=== PATIENT | female | born 1975 | race Caucasian/White ===

== ENCOUNTER 2016-05-18 06:39 | Outpatient (CLI) ==
[2013-10-03 22:31] VITALS: BMI 25.1
--- NOTE | 2016-05-23 10:59 | STRESSECHO ---
Date of Test: 05/18/16 Reason for Exam: ABNORMAL EKG Ordering Physician: INEZ TRENTON [facility] Current Medications: ATENOLOL, FIORESNOL, MEDRIN Physical Findings: S1, S2, NO S3 Resting EKG: SINUS RHYTHM/ NO ACUTE CHANGES Target Heart Rate: 153/180 STAGE MPH/GRADE HEART RATE BPM BLOOD PRESSURE/ MMHG RHYTHM S-T SEGMENT +/- UP DOWN SYMPTOMS,COMMENTS At Rest 90 116/70 SR X NONE 1 1.7/10% 130 130/82 SR X NONE 2 2.5/12% 134/82 SR X NONE 3 3.4/14% 4 4.2/16% 5 5.0/18% Immediately after 158 SR X FATIGUE Durations of Exercise: 6:00 Maximum Heart Rate Reached: 158 Reason for Termination: FATIGUE 3 MIN POST EXER HR-105 SINUS RHYTHM, S-T SEGMENT +/-, NO COMMENTS INTERPRETATION: 99% OXYGEN SATURATION WITH EXERCISE ON ROOM AIR METS 7.0 1. TEST NEGATIVE FOR ISCHEMIC ST-T WAVE CHANGES 2. NO CHEST PAIN OR CHEST DISCOMFORT 3. NO ARRHYTHMIAS 4. BLOOD PRESSURE RESPONSE: NORMAL NORMAL LEFT VENTRICULAR CONTRACTILITY--RESTING/POST EXERCISE MTDD
--- NOTE | 2016-05-23 11:01 | ECHOSTRESS ---
Date of Exam: 05/18/16 Ordering Physician: GATO Reason for Echo: ABNORMAL EKG, STRESS TEST--NO ISCHEMIA M-Mode Normal Adult Results LV Dimensions Normal Adult Results AoV Opening excursions >1.6 LVEDD-base- 3.5-5.8 Ao root dimensions 2.0-3.7 LVESD-base- 3.1-4.6 L. Atrium dimensions 1.9-3.8 Post. Wall thickness 0.8-1.1 IV septum (thickness) 0.7-1.2 Post. Wall excursion 0.72-1.3 Septal motion Systolic motion R. Ventricular cavity 1.5-2.0 LVEF 60% Paradoxical septal wall motion 2-D: NORMAL LEFT VENTRICULAR CONTRACTILITY--RESTING AND POST EXERCISE M-MODE: MV: AV: TV: PV: CHAMBER SIZE: WALL MOTION: NORMAL LEFT VENTRICULAR CONTRACTILITY--RESTING AND POST EXERCISE PERICARDIUM: INTERPRETATION: 1. NORMAL LEFT VENTRICULAR CONTRACTILITY--RESTING AND POST EXERCISE MTDD
== END 2016-05-18 06:40 | disposition home or self-care (01) ==
LOC: CAR 06:39
PROVIDERS: ATTEND Nurse Practitioner Family
DX: R94.31 Abnormal electrocardiogram [ECG] [EKG] (principal)

== ENCOUNTER 2016-07-13 11:28 | Outpatient (CLI) ==
[2013-10-03 22:31] VITALS: BMI 25.1
== END 2016-07-13 11:29 | disposition home or self-care (01) ==
LOC: LAB 11:28
PROVIDERS: ATTEND Nurse Practitioner Family
DX: J02.9 Acute pharyngitis, unspecified (principal)
CPT/HCPCS: 87651; 87880

== ENCOUNTER 2016-10-18 02:04 | Emergency (ER) | payer BC, OTHER ==
[2016-10-18] MEDS ORDERED: ZOFRAN 4 MG/2 ML IM STA (02:12)
[2016-10-18] MEDS ORDERED: ROCEPHIN IM STA (02:12)
[2016-10-18] MEDS ORDERED: LIDOCAINE 1 % AMP 5 ML (SUTURES) IM STA (02:12)
[2016-10-18] MEDS ORDERED: MORPHINE 2 MG/ML SYRINGE IM STA (02:12)
--- NOTE | 2016-10-18 02:15 | ED.PDOC ---
General ED Provider: Dr. SHABNAM HERNANDEZ-ER Chief Complaint: Earache Stated Complaint: avel had a cold --my ears are hurting Time Seen by Physician: 02:13 Mode of Arrival: Walk-In Information Source: Patient Exam Limitations: No limitations Primary Care Provider: SHANNON RASHID Nursing and Triage Documentation Reviewed and Agree: Yes EENT Complaint Exam - Ear Complaint/Exam Onset/Duration: today Symptoms Are: Still present Timing: Constant Initial Severity: Mild Current Severity: Moderate Character: Reports: Dull pain, Aching pain, Throbbing pain Aggravating: Reports: None Alleviating: Reports: None Associated Signs and Symptoms: Reports: URI symptoms. Denies: Ear trauma, Ear swelling, Discharge, Fever, Hearing loss, Bleeding, Sore throat, Headache, Foreign body sensation, Rash, Pain to external ear, Pain to external face Related History: Reports: Similar Episode Ear Surgical History: None Vesicles to External Pinna: No Vesicles to Tragus: No TMJ Tenderness: None Mastoid Tenderness: None Tragal Tenderness: None External Canal: Normal Tympanic Membrane: Erythema, Dullness Differential Diagnoses: Otitis Media Review of Systems - Review Of Systems Constitutional: Reports: No symptoms Eyes: Reports: No symptoms Ears, Nose, Mouth, Throat: Reports: Ear pain, Nose discharge Respiratory: Reports: No symptoms Cardiac: Reports: No symptoms GI: Reports: No symptoms : Reports: No symptoms Musculoskeletal: Reports: No symptoms Skin: Reports: No symptoms Neurological: Reports: No symptoms Endocrine: Reports: No symptoms Hematologic/Lymphatic: Reports: No symptoms All Other Systems: Reviewed and Negative Past Medical History - Past Medical History Previously Healthy: Yes Endocrine: Reports: Unknown Cardiovascular: Reports: Unknown Respiratory: Reports: Unknown Hematological: Reports: Unknown Gastrointestinal: Reports: Liver Genitourinary: Reports: Unknown Neuro/Psych: Reports: Unknown Musculoskeletal: Reports: Unknown Cancer: Reports: Unknown - Surgical History General Surgical History: Reports: Unknown - Family History Family History: Reports: Unknown - Social History Smoking Status: Current every day smoker, Light tobacco smoker Hx Substance Use: No Alcohol Screening: None Lives: With family Physical Exam - Physical Exam Appearance: Well-appearing, No pain distress, Well-nourished Pain Distress: Moderate Eyes: CELE, EOMI, Conjunctiva clear ENT: Nose normal, Oropharynx normal, Erythema (right tm is erythematous and dull ) Respiratory: Airway patent, Breath sounds clear, Breath sounds equal, Respirations nonlabored Cardiovascular: RRR, Pulses normal, No rub, No murmur GI/: Soft, Nontender, No masses, Bowel sounds normal, No Organomegaly Musculoskeletal: Normal strength, ROM intact, No edema, No calf tenderness Skin: Warm Neurological: Sensation intact, Alert, Oriented Psychiatric: Affect appropriate, Mood appropriate Re-Evaluation - Re-Evaluation Time of Re-Evaluation: 02:45 Status: Unchanged, Improved Vital Signs Stable: Yes Pain Level: 2 Appearance: NAD Lungs: Clear Skin: Warm and Dry Neuro: Alert and Oriented X3 CV: RRR Critical Care Note - Critical Care Note Total Time (mins): 0 Course - Course Orders, Labs, Meds: Orders Category Date Time Status Ceftriaxone Sodium [Rocephin] MEDS 10/18/16 02:12 Stat 1 gm IM ONCE STA Lidocaine HCl/Pf [Lidocaine 1 % Amp 5 ml (Sutures)] MEDS 10/18/16 02:12 Stat 2.1 ml IM ONCE STA Morphine Sulfate [Morphine 2 mg/ml Syringe] MEDS 10/18/16 02:12 Stat 2 mg IM ONCE STA Ondansetron HCl/Pf [Zofran 4 mg/2 ml] MEDS 10/18/16 02:12 Stat 4 mg IM ONCE STA Medications Generic Name Dose Route Start Last Admin Trade Name Aj PRN Reason Stop Dose Admin Ceftriaxone Sodium 1 gm 10/18/16 02:12 Rocephin IM 10/18/16 02:13 ONCE STA Lidocaine HCl 2.1 ml 10/18/16 02:12 Lidocaine 1 % Amp 5 Ml (Sutures) IM 10/18/16 02:13 ONCE STA Morphine Sulfate 2 mg 10/18/16 02:12 Morphine 2 Mg/Ml Syringe IM 10/18/16 02:13 ONCE STA Ondansetron HCl 4 mg 10/18/16 02:12 Zofran 4 Mg/2 Ml IM 10/18/16 02:13 ONCE STA Departure - Departure Time of Disposition: 02:16 Disposition: HOME SELF-CARE Discharge Problem: Otitis media Qualifiers: Otitis media type: suppurative Chronicity: acute Laterality: right Recurrence: not specified as recurrent Spontaneous tympanic membrane rupture: without spontaneous rupture Qualifier Code: (H66.001) Acute suppurative otitis media without spontaneous rupture of ear drum, right ear Instructions: Otitis Media (ED) Condition: Good Pt referred to PMD for follow-up: Yes Additional Instructions: augmentin 875mg bid x 10 days--norco 5mg q 4hrs prn pain #10--f/u with pcp Allergies/Adverse Reactions: Allergies hydromorphone HCl [From Dilaudid] Allergy (Severe, Unverified 11/20/13 09:28) hives and itching tp notified to get medical alert necklace milnacipran HCl [From Savella] Allergy (Severe, Unverified 11/20/13 09:27) burning to face Sulfa (Sulfonamide Antibiotics) Allergy (Severe, Unverified 11/20/13 09:28) hives and itching erythromycin base [Erythromycin Base] Adverse Reaction (Verified 10/03/13 22:41) pepto bismal Adverse Reaction (Mild, Uncoded 11/20/13 09:29) sick to stomach, makes me vomit Home Medications: Ambulatory Orders Ibuprofen 200 mg PO PRN 10/29/14 Isomethepten/Caf/Acetaminophen [Dcudnomtcn-Aidp-Ucezyfdvjzyub] 1 each PO 5XD PRN 02/17/16 Isomethept/Dichlphn/Acetaminop [Hiyrcohper-Gecshjxqgy-Khogtlnr] 1 each PO PRN Verapamil HCl 40 mg PO d 07/25/16 Disposition Discussed With: Patient
[2016-10-18 02:17] VITALS: BP 173/90; TEMP 98.3; BMI 27.3
== END 2016-10-18 03:11 | disposition home or self-care (01) ==
LOC: ED 02:04
DX: H66.001 Acute suppurative otitis media without spontaneous rupture of ear drum, right ear (principal); F17.210 Nicotine dependence, cigarettes, uncomplicated
CPT/HCPCS: 96372; 99282

== ENCOUNTER → 2016-11-22 | Outpatient (POV) | LOC: OUTPT 00:01 | PROVIDERS: ATTEND Otolaryngology | DX: H69.90 Unspecified Eustachian tube disorder, unspecified ear (principal) | CPT/HCPCS: 92557; 92567 ==

== ENCOUNTER 2017-06-03 11:24 | Emergency (ER) ==
[2017-06-03 11:32] VITALS: TEMP 97.9; BMI 25.9
--- NOTE | 2017-06-03 11:53 | ED.PDOC ---
General ED Provider: Dr. RUSSELL DE LEON Chief Complaint: Non-specific Complaint Stated Complaint: Went to clinic on with back pain and was given two injections and bp was 176/102. Sent home. Went to work today and "doesn't feel good". C/o spasms neck, back, shoulders. Checked bp at work: 165/102, before she took her Verapmil. Time Seen by Physician: 11:51 Mode of Arrival: Walk-In Information Source: Patient Exam Limitations: No limitations Primary Care Provider: SHANNON RASHID Nursing and Triage Documentation Reviewed and Agree: Yes Reviewed sepsis parameters & appropriate labs ordered?: Yes System Inflammatory Response Syndrome: Not Applicable Sepsis Protocol: For patient's 13 years and over: Temp is 96.8 and below OR 101 and greater Pulse >90 BPM Resp >20/minute Acutely Altered Mental Status Are patient's symptoms suggestive of a new infection, such as: -Pneumonia -Skin, Soft Tissue -Endocarditis -UTI -Bone, Joint Infection -Implantable Device -Acute Abdominal Infection -Wound Infection -Meningitis -Blood Stream Catheter Infection -Unknown System Inflammatory Response Syndrome: Not Applicable Musculoskeletal Complaint Exam - Back Pain Complaint/Exam Mechanism of Injury: Reports: No known trauma Onset/Duration: 2 days Symptoms Are: Still present Timing: Constant Initial Severity: Moderate Current Severity: Severe Location: Reports: Diffuse Character: Reports: Spasmodic Aggravating: Reports: Movements, Lifting, Bending Alleviating: Reports: None Associated Signs and Symptoms: Denies: Swelling, Redness, Bruising, Fever, Weakness, Numbness, Tingling, Abdominal pain, Flank pain, Bladder incontinence, Bowel incontinence, Weight loss, Pain with weight bearing TAD Risk Factors: Reports: None AAA Risk Factors: Reports: None Cauda Equina Risk Factors: Reports: None Epidural Abcess Risk Factors: Reports: None Focal Tenderness: Yes Paraspinal Muscle Tenderness: Yes Paraspinal Muscle Spasm: Yes Scoliosis: No Lordosis: No Kyphosis: No SLR Test: Right Negative, Left Negative Hip Motion Testing Pain: Right Negative, Left Negative Focal Weakness: Present: None Gait: Present: Normal Differential Diagnoses: Strain, Sprain Review of Systems - Review Of Systems Constitutional: Reports: No symptoms Eyes: Reports: No symptoms Ears, Nose, Mouth, Throat: Reports: No symptoms Respiratory: Reports: No symptoms Cardiac: Reports: No symptoms GI: Reports: No symptoms : Reports: No symptoms Musculoskeletal: Reports: Back pain, Muscle pain Skin: Reports: No symptoms Neurological: Reports: No symptoms Endocrine: Reports: No symptoms Hematologic/Lymphatic: Reports: No symptoms All Other Systems: Reviewed and Negative Past Medical History - Past Medical History Previously Healthy: Yes Endocrine: Reports: None Cardiovascular: Reports: Unknown Respiratory: Reports: None Hematological: Reports: None Gastrointestinal: Reports: Liver Genitourinary: Reports: None Neuro/Psych: Reports: Migraine, Depression Musculoskeletal: Reports: None Cancer: Reports: None Last Menstrual Period: 05/13/17 Other Pertinent Past Medical History: Pleuricy - Surgical History General Surgical History: Reports: , Cholecystectomy, Tonsillectomy, Adenoidectomy, Orthopedic ( ACL REPAIR RIGHT KNEE, LEFT KNEE ORTHOSCOPIC), 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), Unknown - Family History Family History: Reports: Unknown - Social History Smoking Status: Current every day smoker Hx Substance Use: No Alcohol Screening: Occasionally - Immunizations Tetanus Shot up to Date: (unknown) Physical Exam - Physical Exam Appearance: Ill-appearing Ill-appearing: Mild Pain Distress: Severe Neck: Supple Respiratory: Airway patent, Breath sounds clear, Breath sounds equal, Respirations nonlabored Cardiovascular: RRR, Pulses normal, No rub, No murmur GI/: Soft, Nontender, No masses, Bowel sounds normal, No Organomegaly Musculoskeletal: ROM intact Skin: Warm, Dry, Normal color Neurological: Alert, Oriented Psychiatric: Anxious Critical Care Note - Critical Care Note Total Time (mins): 0 Course - Course Orders, Labs, Meds: Lab Review 06/03/17 06/03/17 12:30 12:30 Urine Color Yellow Urine Clarity Clear Urine pH 6.0 Ur Specific [place] 1.015 Urine Protein Negative Urine Glucose (UA) Negative Urine Ketones Negative Urine Blood Negative Urine Nitrite Negative Urine Bilirubin Negative Urine Urobilinogen 0.2 Ur Leukocyte Esterase Negative Influenza A (Rapid) Negative by naat Influenza B (Rapid) Negative by naat Orders Category Date Time Status FLU A/B MOLECULAR Stat LAB 06/03/17 12:30 Completed URINALYSIS C & S IF INDICATED Stat LAB 06/03/17 12:30 Completed Butorphanol Tartrate [Stadol] MEDS 06/03/17 13:05 Discontinued 2 mg IM ONCE STA Clonidine HCl [Catapres] MEDS 06/03/17 12:13 Discontinued 0.2 mg PO ONCE STA Ketorolac Tromethamine [Toradol] MEDS 06/03/17 12:17 Discontinued 60 mg IM ONCE STA Medications Discontinued Medications Generic Name Dose Route Start Last Admin Trade Name Aj PRN Reason Stop Dose Admin Butorphanol Tartrate 2 mg 06/03/17 13:05 06/03/17 13:10 Stadol IM 06/03/17 13:06 2 mg ONCE STA Administration Clonidine 0.2 mg 06/03/17 12:13 06/03/17 12:24 Catapres PO 06/03/17 12:14 0.2 mg ONCE STA Administration Ketorolac Tromethamine 60 mg 06/03/17 12:17 06/03/17 12:27 Toradol IM 06/03/17 12:18 60 mg ONCE STA Administration Vital Signs: Temp Pulse Resp BP Pulse Ox 06/03/17 14:09 147/97 H 06/03/17 14:07 147/97 H 06/03/17 13:55 145/95 H 06/03/17 13:42 154/93 H 06/03/17 13:21 154/97 H 06/03/17 13:20 154/97 H 06/03/17 13:08 172/101 H 06/03/17 13:03 145/113 H 06/03/17 13:02 145/113 H 06/03/17 12:30 160/100 H 06/03/17 12:05 173/110 H 06/03/17 11:25 97.9 F 85 20 179/114 H 99 Departure - Departure Time of Disposition: 12:48 Disposition: HOME SELF-CARE Discharge Problem: Muscle spasm Back pain Qualifiers: Back pain location: back pain in unspecified location Chronicity: acute Back pain laterality: midline Qualified Code(s): M54.9 - Dorsalgia, unspecified Hypertension Qualifiers: Hypertension type: essential hypertension Qualified Code(s): I10 - Essential ( primary) hypertension Instructions: Cigarette Smoking and Your Health (GEN), Acute Low Back Pain (ED) , Hypertension (ED), Muscle Spasm (ED) Condition: Stable Pt referred to PMD for follow-up: No IPMP verified?: No Additional Instructions: Rest, use tense unit as needed Use heat or cold therapy. Stretching exercises Take home medications as prescribed. Follow up with PCP in 3-5 days Check Blood pressure reading daily and bring it to your PCP Prescriptions: Hydrochlorothiazide 12.5 mg PO DAILY #14 tablet Allergies/Adverse Reactions: Allergies hydromorphone HCl [From Dilaudid] Allergy (Severe, Unverified 06/03/17 11:33) hives and itching tp notified to get medical alert necklace milnacipran HCl [From Savella] Allergy (Severe, Unverified 06/03/17 11:33) burning to face Sulfa (Sulfonamide Antibiotics) Allergy (Severe, Unverified 06/03/17 11:33) hives and itching erythromycin base [Erythromycin Base] Adverse Reaction (Verified 06/03/17 11:33) pepto bismal Adverse Reaction (Mild, Uncoded 06/03/17 11:33) sick to stomach, makes me vomit Home Medications: Ambulatory Orders Verapamil HCl [Verapamil Er] 120 mg PO BEDTIME tab-cap 01/04/17 Hydrochlorothiazide 12.5 mg PO DAILY #14 tablet 06/03/17 Disposition Discussed With: Patient
[2017-06-03] MEDS ORDERED: CATAPRES PO STA (12:13)
[2017-06-03] MEDS ORDERED: TORADOL IM STA (12:17)
[2017-06-03] MEDS ORDERED: STADOL IM STA (13:05)
[2017-06-03 14:08] VITALS: BP 147/97
== END 2017-06-03 14:21 | disposition home or self-care (01) ==
LOC: ED 11:24
DX: M62.830 Muscle spasm of back (principal); M54.9 Dorsalgia, unspecified; I10 Essential (primary) hypertension; F17.210 Nicotine dependence, cigarettes, uncomplicated
CPT/HCPCS: 81001; 87502; 96372; 99284

== ENCOUNTER 2017-07-07 14:40 | Outpatient (CLI) ==
--- NOTE | 2017-07-07 15:49 | DI ---
Exam: Chest two-view HISTORY: Hypertension. Comparison: 05/10/2016. FINDINGS: Two views of the chest demonstrate moderately expanded lungs with no evidence of pneumonia or edema. The heart is normal in size and configuration. The pulmonary vasculature is not congeste d. The skeletal structures are intact. IMPRESSION: No acute cardiopulmonary disease.
--- NOTE | 2017-07-07 16:10 | CT ---
EXAM: CT BRAIN, COMPLETE HISTORY: Headache TECHNIQUE: CT brain with and without intravenous contrast. 5-mm axial sections. Reformations were prepared. 75 ml Omnipaque FINDINGS: Compared to 07/14/2007. Brain parenchyma demonstrates no significant abnormality. No suggestion of recent large vessel dist ribution ischemic infarction. No intracranial hemorrhage or acute subdural fluid collection. There is no acute ventriculomegaly, mass or mass effect. After intravenous contrast administration, there were no foci of abnormal contrast enhancement discov ered. Cranium is intact. Mastoid air cells are aerated. The visualized paranasal sinuses are clear. IMPRESSION: Within normal limits.
== END 2017-07-07 14:41 | disposition home or self-care (01) ==
LOC: RAD 14:40
PROVIDERS: ATTEND Nurse Practitioner Family
DX: G44.85 Primary stabbing headache (principal); I10 Essential (primary) hypertension
CPT/HCPCS: 36415; 80053; 80061; 84439; 84443; 85025

== ENCOUNTER 2017-07-07 20:07 | Inpatient (IN) ==
[2017-07-07] MEDS ORDERED: LOPRESSOR IVP STA (20:24)
[2017-07-07] MEDS ORDERED: MORPHINE 2 MG/ML SYRINGE IVP PRN (20:25)
[2017-07-07] MEDS ORDERED: ZOFRAN 4 MG/2 ML IVP PRN (20:25)
[2017-07-07] MEDS: SODIUM CHLORIDE 1,000 ML IV SCH (21:00)
[2017-07-07] MEDS: TORADOL IVP PRN (21:17)
[2017-07-08] MEDS ORDERED: FLEXERIL PO PRN (08:21)
[2017-07-08] MEDS ORDERED: VALIUM PO PRN ×2 (08:21→08:51)
[2017-07-08] MEDS: TORADOL IVP PRN (08:41)
[2017-07-08] MEDS: CELEXA PO SCH ×2 (08:42→08:45)
[2017-07-08] MEDS: LIBRIUM PO SCH ×2 (08:43→20:55)
[2017-07-08] MEDS: TOPROL XL PO SCH (08:43)
[2017-07-08] MEDS: ZESTRIL PO SCH (08:43)
[2017-07-08] MEDS ORDERED: NON-FORMULARY MEDICATION (Lisinopril [Lisinopril] 20 MG) PO SCH (09:00)
[2017-07-08] MEDS ORDERED: NON-FORMULARY MEDICATION (Citalopram Hydrobromide [Citalopram Hbr] 40 MG) PO SCH (09:00)
[2017-07-08] MEDS: SODIUM CHLORIDE 1,000 ML IV SCH (12:49)
[2017-07-08] MEDS ORDERED: NORCO 7.5-325 PO STA (13:51)
--- NOTE | 2017-07-08 14:54 | DI ---
EXAM: Three-view ankle COMPARISON: None HISTORY: Trauma and pain FINDINGS: There is no acute fracture or dislocation. Alignment is anatomic. Joint spaces are unrema rkable. There is no soft tissue swelling. No unexpected radio-opaque foreign bodies. There is some de generative changes seen involving the medial malleolus. The ankle mortise is preserved. IMPRESSION: No acute osseous abnormality.
[2017-07-08] MEDS ORDERED: CELEXA PO SCH (21:00)
[2017-07-08] MEDS ORDERED: CALAN SR PO SCH (21:00)
[2017-07-08] MEDS ORDERED: VERAPAMIL HCL 120 MG PO SCH (21:00)
[2017-07-09] MEDS: SODIUM CHLORIDE 1,000 ML IV SCH ×2 (04:26→09:57)
[2017-07-09] MEDS: LIBRIUM PO SCH (09:55)
[2017-07-09] MEDS: TOPROL XL PO SCH (09:56)
[2017-07-09] MEDS: ZESTRIL PO SCH (09:56)
[2017-07-09 10:50] VITALS: BP 136/83; TEMP 98.3
--- NOTE | 2017-07-14 09:18 | DS ---
DATE OF SERVICE: 07/09/17 FINAL DIAGNOSIS: 1. Hypertensive urgency with headache and dizziness 2. Uncontrolled hypertension 3. History of migraine 4. Depression 5. Nicotine history 6. Tonsillectomy 7. TMJ DISCHARGE INSTRUCTIONS: Discharge the patient home. Follow up with Deisy Clemente with in 4-5 days. Rest for 2 days at home. Resume home medications. MEDICATIONS AT DISCHARGE: Metoprolol Succinate 25mg PO daily Verapamil ER 120mg PO bedtime Citalopram 40mg PO daily Diazepam 5mg PO as directed Cyclobenzaprine 10mg PO bedtime PRN Lisinopril 20mg Po daily NEW PRESCRIPTIONS: Librium 5mg PO twice a day DIET INSTRUCTIONS: Cardiac and healthy diet ACTIVITY: As much as tolerated SMOKING: Current everyday smoker. DISEASE SPECIFIC EDUCATION: Uncontrolled hypertension and risk of stroke and intracranial bleed been discussed. HOSPITAL COURSE: Laura Keen, 42 year old female, who has a history of the blood pressure, went and seen the Deisy Clemente in the office and the blood pressure was high more than 200 systolic and was having headache. She gave the dose of Clonidine and getting CT of the head which was negative. The patient was discharged from the office. The patient went home and started having the headache, not feeling good and checked the blood pressure and it was more than 180/110 at home so called the PMD and PMD called me and informed about the patient and given situation failure treatment as outpatient the patient along with headache and dizziness and the hypertensive urgency the patient was admitted to the hospital directly and given a dose of Metoprolol 5mg IV push. Morphine for the headache and Toradol for the headache. With the given treatment the blood pressure had settled down. On further questioning the patient did suggest that patient had a lot stress at home and workplace and lately it has been increasing. At that time the Librium was added to the regimen. With continuing the rest of the home medication the patient did tolerate the medications well but today the blood pressure is a lot better. The patient is up and about and walking still has some headache, no blurry vision or dizziness. At that time discharge plan was made and the resumed all the home medication and we will giving script for the Librium as needed 5mg twice a day PRN and continue the rest of the home medications. TIME SPENT: MORE THAN 65 MINUTES MTDD
--- NOTE | 2017-07-14 10:22 | PN ---
DATE OF SERVICE: 07/08/17 SUBJECTIVE: The patient was admitted with hypertensive urgency and uncontrolled hypertension with headache and dizziness. Blood pressure after resuming the home medications and the dose of IV push Metoprolol been better. Still has a headache, did get Morphine and Toradol and didn't help it. REVIEW OF SYSTEMS: CONSTITUTIONAL: No fever, no chills. HEENT: Normal. ENDOCRINE: No weight gain, no weight loss. CVS: No angina symptoms. No CHF symptoms. No palpitations. No atypical chest pain for CAD. No shortness of breath. No PND, no orthopnea. RESPIRATORY: No cough, no hemoptysis. GI: No nausea, no vomiting. No abdominal pain. : No hematuria. No polyuria. MUSCULOSKELETAL: No joint swelling. PSYCHIATRIC: Not anxious. No depression. No suicidal thoughts. No homicidal thoughts. SKIN: Intact. No rash. PHYSICAL EXAMINATION: V/S: Blood pressure 136/83, respiratory rate 18, heart rate 69 and temperature 97.9 with saturation 98. HEENT: Normocephalic, atraumatic. Mucosa dry. Pallor positive. No icterus. NECK: Supple. No JVD, no carotid bruit. No lymphadenopathy. LUNGS: Clear to auscultation. No rales or rhonchi. HEART: S1, S2 normal. No S3. No murmur, gallop or regurgitation. ABDOMEN: Soft, nontender. Bowel sounds active. No rigidity. No rebound or guarding. No CVA tenderness. EXTREMITIES: No pedal edema. No clubbing or cyanosis MUSCULOSKELETAL: No joint swelling. NEUROLOGIC: Awake, alert, oriented times three. No focal deficit. LYMPHATIC: No lymph nodes palpable. SKIN: Intact. LABS: Sodium 141, potassium 3.6, chloride 109, bicarb 24, BUN 14, creatinine 0.77 and glucose 97. WBC 11.61, hgb 12.7, hct 36.1, plt count 278 ASSESSMENT: 1. Hypertensive urgency 2. Depression 3. Migraine headache PLAN: 1. Continue the Metoprolol 25mg PO daily 2. Lisinopril 20mg PO daily 3. Verapamil 4. Toradol for the headache PRN 5. For moderate to severe headache please give the Morphine TIME SPENT: More than 35 minutes MTDD
--- NOTE | 2017-07-14 10:35 | HP ---
DATE OF SERVICE: 07/07/17 CHIEF COMPLAINT: Uncontrolled hypertension HISTORY OF PRESENT ILLNESS: This is a 42 year old female who was initially seen as outpatient by Deisy Clemente today for elevated blood pressure and headache for which the patient had a CT of the head and Clonidine was given at the clinic. The patient went home and started feeling again the headache, not feeling good and some dizziness. Blood pressure at home was again 180/120 so came to the hospital for the direct admission. Deisy Clemente did call and tell me about the patient so we did the direct admission. Rechecked the blood pressure by myself it was 180/112 and on the floor it was 153/97. Home medications were continued and Metoprolol IV push 5mg which did control the blood pressure. Morphine for pain and Toradol for pain was given. CT of the head was negative for stroke as outpatient and resume the Metoprolol succinate 25mg PO daily and Lisinopril 20mg PO daily along with the Verapamil. The takes the Verapamil for the prevention of the migraine headaches. REVIEW OF SYSTEMS: CONSTITUTIONAL: No fever, no chills. HEENT: Normal. Headaches. ENDOCRINE: No weight gain; no weight loss. CVS: No chest pain. No PND, no orthopnea. No shortness of breath. No PND, no orthopnea. Elevated blood pressure. Dizziness. RESPIRATORY: No cough, no congestion. No hemoptysis. GI: No nausea, no vomiting. No abdominal pain. No melena. : No hematuria. No polyuria. MUSCULOSKELETAL: No joint swelling. PSYCHIATRIC: Not anxious. No depression. No suicidal thoughts. No homicidal thoughts. SKIN: Intact, no open lesions. PAST MEDICAL HISTORY: Hypertension uncontrolled Osteoarthritis Depression PAST SURGICAL HISTORY: Ear surgery Tonsillectomy PERSONAL HISTORY: The patient does smoke, no alcohol and no drugs. Family history is significant for the hypertension and basal cell carcinoma. MEDICATIONS: Verapamil Metoprolol Lisinopril ALLERGIES: Hydromorphone Milnacipran Bactrim PHYSICAL EXAMINATION: V/S: Blood pressure 180/112 then 153/97. HEENT: Atraumatic, normocephalic. No scleral icterus. Pallor . Mucosa . NECK: Supple. No JVD, no bruit. No lymphadenopathy. No thyromegaly. HEART: S1, S2 normal. No murmur. No cyanosis or clubbing. No ascites. LUNGS: Clear to auscultation. No rales or rhonchi. ABDOMEN: Soft, nontender. Bowel sounds are active. No CVA tenderness. No rigidity or guarding. EXTREMITIES: No pedal edema. No cyanosis or clubbing MUSCULOSKELETAL: Normal joints, no swelling. NEUROLOGIC: The patient is SKIN: Intact; no open lesions. LYMPHATIC: No lymph nodes palpable. LABS: WBC 10.27, hgb 13.8, hct 39.6, plt count 316, sodium 142, potassium 3.7, chloride 108, bicarb 28, BUN 9, creatinine 0.87, glucose 70, Total Cholesterol 208. CT of the head is negative for the stroke. Chest x-ray normal ASSESSMENT: 1. Hypertension uncontrolled and intensive with headache 2. History of ankle pain 3. Depression 4. Migraine headaches. PLAN: 1. Metoprolol 5mg IV push 2. Continue the Metoprolol Succinate 25mg PO daily 3. Lisinopril 20mg PO daily 4. Verapamil 5. Morphine for the pain 6. Toradol for the pain TIME SPENT: MORE THAN 75 minutes MTDD
== END 2017-07-09 12:07 | disposition home or self-care (01) | DRG 305 ==
LOC: MEDSURG B 20:07
PROVIDERS: ADMIT Emergency Medicine; ATTEND Emergency Medicine
DX: I16.0 Hypertensive urgency (principal); G44.85 Primary stabbing headache; G43.909 Migraine, unspecified, not intractable, without status migrainosus; I10 Essential (primary) hypertension; R42 Dizziness and giddiness; M25.571 Pain in right ankle and joints of right foot; F32.9 Major depressive disorder, single episode, unspecified; M26.609 Unspecified temporomandibular joint disorder, unspecified side; F17.210 Nicotine dependence, cigarettes, uncomplicated; Z79.899 Other long term (current) drug therapy
CPT/HCPCS: 36415; 80053; 80061; 82550; 84439; 84443; 84484; 85025; 93005; 93010

== ENCOUNTER 2017-07-22 18:41 | Emergency (ER) ==
[2017-07-22 18:53] VITALS: BP 139/89; TEMP 98.1; BMI 25.8
--- NOTE | 2017-07-22 19:36 | ED.PDOC ---
General ED Provider: Dr. ROSALIA THOMPSON Chief Complaint: Chest Pain Stated Complaint: Been huring in the middle of the chest, heavyness, going for 3 -4 days, 11/21. does not radiate, also c/o she is been hurting in the rt lower abdomen, sharp type. no nausea or vomting. Time Seen by Physician: 19:34 Mode of Arrival: Walk-In Information Source: Patient Primary Care Provider: SHANNON RASHID Nursing and Triage Documentation Reviewed and Agree: Yes Reviewed sepsis parameters & appropriate labs ordered?: No System Inflammatory Response Syndrome: Not Applicable Sepsis Protocol: For patient's 13 years and over: Temp is 96.8 and below OR 101 and greater Pulse >90 BPM Resp >20/minute Acutely Altered Mental Status Are patient's symptoms suggestive of a new infection, such as: -Pneumonia -Skin, Soft Tissue -Endocarditis -UTI -Bone, Joint Infection -Implantable Device -Acute Abdominal Infection -Wound Infection -Meningitis -Blood Stream Catheter Infection -Unknown Cardiovascular Complaint Exam - Chest Pain Complaint/Exam Onset: Gradual Symptoms Are: Still present Timing: Constant Initial Severity: Moderate Current Severity: Moderate Location: Reports: Midsternal Pain Radiates: Reports: Neck Character: Reports: Dull, Tightness, Heaviness Aggravating: Reports: None Alleviating: Reports: None Associated Signs and Symptoms: Reports: Abdominal pain. Denies: Diaphoresis, Nausea, Vomiting, Fever, Palpitations, Cough, Hemoptysis, Back pain, Dizziness, Short of air, Calf pain, Calf swelling Related History: Reports: Similar episode Related Surgical History: Reports: None History of Healthcare-Acquired Pneumonia: Reports: No AMI/ACS Risk Factors: Reports: Family history, Hypertension, Smoking TAD Risk Factors: Reports: None Pulmonary Embolism Risk Factors: Reports: None Prior Care for this Complaint: No Recent Stress Test: No Recent Echo/LV Function: No Diminshed Breath Sounds: No Bilateral Pulses Present: No Unequal Pulses Noted: No If Risk Factors for AMI/ACS Consider: EKG, Cardiac Enzymes Differential Diagnoses: ACS, Chest Wall Pain, GI Diseasae Quality Indicators For Acute NM or Cardiac Chest Pain: EKG in 10min., ASA if indicated Review of Systems - Review Of Systems Constitutional: Reports: No symptoms Eyes: Reports: No symptoms Ears, Nose, Mouth, Throat: Reports: No symptoms Respiratory: Reports: No symptoms Cardiac: Reports: Chest pain GI: Reports: Abdominal pain : Reports: No symptoms Musculoskeletal: Reports: No symptoms Skin: Reports: No symptoms Neurological: Reports: No symptoms Endocrine: Reports: No symptoms Hematologic/Lymphatic: Reports: No symptoms All Other Systems: Reviewed and Negative Past Medical History - Past Medical History Previously Healthy: Yes Endocrine: Reports: None Cardiovascular: Reports: Unknown Respiratory: Reports: None Hematological: Reports: None Gastrointestinal: Reports: Liver Genitourinary: Reports: None Neuro/Psych: Reports: Migraine, Depression Musculoskeletal: Reports: None Cancer: Reports: None Last Menstrual Period: end of last month Other Pertinent Past Medical History: Pleuricy - Surgical History General Surgical History: Reports: , Cholecystectomy, Tonsillectomy, Adenoidectomy, Orthopedic ( ACL REPAIR RIGHT KNEE, LEFT KNEE ORTHOSCOPIC), 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), Unknown - Family History Family History: Reports: Unknown - Social History Smoking Status: Current every day smoker, Heavy tobacco smoker Smoking Cessation Counseling Time: > 3 min - 10 min Hx Substance Use: No Alcohol Screening: Occasionally Physical Exam - Physical Exam Appearance: Well-appearing, No pain distress, Well-nourished Eyes: CELE, EOMI, Conjunctiva clear ENT: Ears normal, Nose normal, Oropharynx normal Respiratory: Airway patent, Breath sounds clear, Breath sounds equal, Respirations nonlabored Cardiovascular: RRR, Pulses normal, No rub, No murmur GI/: Soft, No masses, Bowel sounds normal, No Organomegaly, Tender (rt loq) Musculoskeletal: Normal strength, ROM intact, No edema, No calf tenderness Skin: Warm, Dry, Normal color Neurological: Sensation intact, Motor intact, Reflexes intact, Cranial nerves intact, Alert, Oriented Psychiatric: Affect appropriate, Mood appropriate Interpretation - Radiology Interpretation Radiology Interpretation By: Radiologist Radiology Results: Negative Exam Interpreted: CT Scan Re-Evaluation - Re-Evaluation Time of Re-Evaluation: 22:11 Status: Improved Critical Care Note - Critical Care Note Total Time (mins): 30 Course - Course Hematology/Chemistry: 07/22/17 19:40 07/22/17 19:40 Orders, Labs, Meds: Lab Review 07/22/17 07/22/17 07/22/17 19:40 19:40 19:40 WBC 14.19 H RBC 3.67 L Hgb 12.9 Hct 36.5 L MCV 99.5 H MCH 35.1 H MCHC 35.3 RDW Coeff of Peyton 13.2 Plt Count 253 Immature Gran % (Auto) 0.3 Neut % (Auto) 58.0 Lymph % (Auto) 32.8 [place] % (Auto) 7.3 Eos % (Auto) 1.0 Baso % (Auto) 0.6 Immature Gran # (Auto) 0.0 Neut # (Auto) 8.3 H Lymph # (Auto) 4.7 H [place] # (Auto) 1.0 Eos # (Auto) 0.1 Baso # (Auto) 0.1 D-Dimer (Manual) 163.47 Sodium 138 Potassium 3.4 L Chloride 104 Carbon Dioxide 24 Anion Gap 13.4 BUN 15 Creatinine 1.08 Estimated GFR (MDRD) 56.00 BUN/Creatinine Ratio 13.88 Glucose 64 L Calcium 9.1 Total Bilirubin 0.4 AST 9 L ALT 12 Alkaline Phosphatase 69 Total Creatine Kinase 36 Troponin I 0.0120 Total Protein 6.1 L Albumin 3.4 Globulin 2.7 Albumin/Globulin Ratio 1.26 Urine Color Urine Clarity Urine pH Ur Specific [place] Urine Protein Urine Glucose (UA) Urine Ketones Urine Blood Urine Nitrite Urine Bilirubin Urine Urobilinogen Ur Leukocyte Esterase Urine Microscopic RBC Ur Squamous Epith Cells Urine Bacteria Urine Test 07/22/17 07/22/17 20:05 20:05 WBC RBC Hgb Hct MCV MCH MCHC RDW Coeff of [place] Plt Count Immature Gran % (Auto) Neut % (Auto) Lymph % (Auto) [place] % (Auto) Eos % (Auto) Baso % (Auto) Immature Gran # (Auto) Neut # (Auto) Lymph # (Auto) [place] # (Auto) Eos # (Auto) Baso # (Auto) D-Dimer (Manual) Sodium Potassium Chloride Carbon Dioxide Anion Gap BUN Creatinine Estimated GFR (MDRD) BUN/Creatinine Ratio Glucose Calcium Total Bilirubin AST ALT Alkaline Phosphatase Total Creatine Kinase Troponin I Total Protein Albumin Globulin Albumin/Globulin Ratio Urine Color Yellow Urine Clarity Clear Urine pH 6.5 Ur Specific [place] 1.015 Urine Protein Negative Urine Glucose (UA) Negative Urine Ketones Negative Urine Blood Trace-intact Urine Nitrite Negative Urine Bilirubin Negative Urine Urobilinogen 0.2 Ur Leukocyte Esterase Negative Urine Microscopic RBC 0-2 Ur Squamous Epith Cells 0-2 Urine Bacteria Trace Urine Test Negative Orders Category Date Time Status EKG-(ED ONLY) Stat CARDIO 07/22/17 20:14 Completed CBC W/ AUTO DIFF Stat LAB 07/22/17 19:40 Completed COMPREHENSIVE METABOLIC PANEL Stat LAB 07/22/17 19:40 Completed CREATINE KINASE Stat LAB 07/22/17 19:40 Completed D-DIMER Stat LAB 07/22/17 19:40 Completed TROPONIN I Stat LAB 07/22/17 19:40 Completed URINALYSIS C & S IF INDICATED Stat LAB 07/22/17 20:05 Completed URINE Stat LAB 07/22/17 20:05 Completed Ketorolac Tromethamine [Toradol] MEDS 07/22/17 21:25 Discontinued 60 mg IM ONCE STA Mag-Al Plus//Lidocaine [Gi Cocktail] MEDS 07/22/17 19:37 Discontinued 30 ml PO ONCE STA Morphine Sulfate [Morphine 2 mg/ml Syringe] MEDS 07/22/17 19:30 Discontinued 2 mg IM ONCE STA Ondansetron HCl/Pf [Zofran 4 mg/2 ml] MEDS 07/22/17 19:30 Discontinued 4 mg IM ONCE STA Potassium Chloride [K-Dur] MEDS 07/22/17 20:57 Discontinued 40 meq PO ONCE STA CHEST, 2 VIEWS PA & LAT Stat RADS 07/22/17 19:[address] ABDOMEN/PELVIS WO CONTRAST Stat RADS 07/22/17 19:32 Completed Medications Discontinued Medications Generic Name Dose Route Start Last Admin Trade Name Freq PRN Reason Stop Dose Admin Al Hydroxide/Mg Hydroxide 30 ml 07/22/17 19:37 07/22/17 19:54 Gi Cocktail PO 07/22/17 19:38 30 ml ONCE STA Administration Ketorolac Tromethamine 60 mg 07/22/17 21:25 07/22/17 21:46 Toradol IM 07/22/17 21:26 60 mg ONCE STA Administration Morphine Sulfate 2 mg 07/22/17 19:30 07/22/17 19:54 Morphine 2 Mg/Ml Syringe IM 07/22/17 19:31 2 mg ONCE STA Administration Ondansetron HCl 4 mg 07/22/17 19:30 07/22/17 19:53 Zofran 4 Mg/2 Ml IM 07/22/17 19:31 4 mg ONCE STA Administration Potassium Chloride 40 meq 07/22/17 20:57 07/22/17 21:13 K-Dur PO 07/22/17 20:58 40 meq ONCE STA Administration Vital Signs: Temp Pulse Resp BP Pulse Ox 07/22/17 18:42 98.1 F 77 20 139/89 99 GEORGIE Risk Score GEORGIE Risk Score: Risk Score Odds of by 30D 0 0.1 (0.1-0.2) 1 0.3 (0.2-0.3) 2 0.4 (0.3-0.5) 3 0.7 (0.6-0.9) 4 1.2 (1.0-1.5) 5 2.2 (1.9-2.6) 6 3.0 (2.5-3.6) 7 4.8 (3.8-6.1) Departure - Departure Time of Disposition: 22:13 Disposition: HOME SELF-CARE Discharge Problem: Chest pain Instructions: Chest Pain (ED) Condition: Stable Pt referred to PMD for follow-up: Yes IPMP verified?: No Additional Instructions: stop Metoprolol. Increase Lisinopril 40 po bid Take medication with food f/u with [facility] in 3-4 days Prescriptions: Prednisone 10 mg PO BIDWM #14 tablet Ranitidine HCl [Zantac] 150 mg PO BIDAC #20 tablet Sucralfate Susp [Carafate] 1 gm PO ACHS #1 bottle Allergies/Adverse Reactions: Allergies hydromorphone HCl [From Dilaudid] Allergy (Severe, Unverified 06/03/17 11:33) hives and itching tp notified to get medical alert necklace milnacipran HCl [From Savella] Allergy (Severe, Unverified 06/03/17 11:33) burning to face Sulfa (Sulfonamide Antibiotics) Allergy (Severe, Unverified 06/03/17 11:33) hives and itching erythromycin base [Erythromycin Base] Adverse Reaction (Verified 06/03/17 11:33) pepto bismal Adverse Reaction (Mild, Uncoded 06/03/17 11:33) sick to stomach, makes me vomit Home Medications: Ambulatory Orders Verapamil HCl [Verapamil ER] 120 mg PO BEDTIME tab-cap 01/04/17 Metoprolol Succinate 25 mg PO BID 07/22/17 Prednisone 10 mg PO BIDWM #14 tablet 07/22/17 Ranitidine HCl [Zantac] 150 mg PO BIDAC #20 tablet 07/22/17 Sucralfate Susp [Carafate] 1 gm PO ACHS #1 bottle 07/22/17 Disposition Discussed With: Patient, Family
[2017-07-22] MEDS: ZOFRAN 4 MG/2 ML IM STA (19:53)
[2017-07-22] MEDS: GI COCKTAIL PO STA (19:54)
[2017-07-22] MEDS: MORPHINE 2 MG/ML SYRINGE IM STA (19:54)
--- NOTE | 2017-07-22 20:43 | CT ---
EXAM: CT scan of the abdomen and pelvis without contrast HISTORY: Abdominal pain TECHNIQUE: Imaging of the abdomen pelvis was performed without contrast. 3 mm thin axial images and coronal and sagittal reconstructions were provided for interpretation. Comparison 09/19/2014 CT scan of the abdomen and pelvis. FINDINGS: The liver, spleen, pancreas, adrenal glands and kidneys appear normal. The proximal urete rs are normal size. The small and large bowel loops caliber. The appendix appears normal. There is no free air. No acute abnormalities are seen within the anterior abdominal wall. The helical images obtained through the pelvis demonstrate a normal appearance of the rectum, urinary bladder. There is no free fluid seen within the pelvis. There is diverticular disease of the sigmo id colon without acute inflammation. Lung bases are clear. No lytic or blastic lesions are seen wit hin the osseous structures. IMPRESSION: There is no bowel obstruction or acute inflammatory change seen within the abdomen and p conor. Diverticular disease of the sigmoid colon without acute inflammation. Previous cholecystectomy.
[2017-07-22] MEDS: K-DUR PO STA (21:13)
[2017-07-22] MEDS: TORADOL IM STA (21:46)
--- NOTE | 2017-07-23 06:40 | DI ---
EXAM: PA and lateral views the chest HISTORY: Chest pain COMPARISON: 07/07/2017 FINDINGS: No consolidation, pleural effusion or pneumothorax is seen. The cardiomediastinal silhouette is within normal limits. IMPRESSION: No acute cardiopulmonary findings.
== END 2017-07-22 22:40 | disposition home or self-care (01) ==
LOC: ED 18:41
DX: R07.9 Chest pain, unspecified (principal); R10.31 Right lower quadrant pain; F17.210 Nicotine dependence, cigarettes, uncomplicated
CPT/HCPCS: 36415; 80053; 81001; 81025; 82550; 84484; 85025; 85379; 93005; 93010; 96372; 99283

== ENCOUNTER 2017-10-23 16:15 | Outpatient (CLI) | payer OTHER | END 2017-10-23 16:16 | disposition home or self-care (01) | LOC: FCC-LAB 16:15 | PROVIDERS: ATTEND Nurse Practitioner Family | DX: G95.20 Unspecified cord compression (principal); S13.1 Subluxation and dislocation of cervical vertebrae; M54.2 Cervicalgia | CPT/HCPCS: 36415; 80053; 85025 ==

== ENCOUNTER 2017-10-24 14:20 | Outpatient (CLI) | payer OTHER ==
--- NOTE | 2017-10-24 17:04 | MRI ---
EXAM: MRI cervical spine without and with IV contrast. DATE: 10/24/2017. HISTORY: Unspecified cord compression. Right neck pain. Right ear pain. TECHNIQUE: Sagittal and axial T1W, T2W, and T1W postcontrast sequences of the cervical spine along w ith sagittal IR and coronal T2W sequences were obtained using 1.2 Fang magnet. Contrast: Omniscan - 15 ml IV. COMPARISON: MRI C-spine 13 February 2013. FINDINGS: There is no cervical scoliosis. Straightening of the cervical lordosis may be due to posi tioning or muscle spasm. A 1.5 mm anterior subluxation of C5 relative to C4 is noted. No other subl uxation, acute fracture, osseous malignancy, or jumped facet is apparent. Cervical vertebra are norm al in height. Bone marrow signal is overall normal. Moderate disc space narrowing is detected at C4 -5. Remaining intervertebral discs are normal in height. Slight anterior cervical cord flattening i s revealed at C4-5. No definitive cord edema, syrinx, myelomalacia, or neoplasm. No abnormal contra st enhancement is revealed in the spinal cord, nerve roots, vertebral bodies or intervertebral discs. Visible brainstem is normal. Cerebellar tonsils extend near the inferior margin of the foramen magnu m. There is no Chiari one malformation. No mastoid disease detected. No distinct thyroid, submandi bular, or parotid gland neoplasm is identified. Trachea, larynx, epiglottis are grossly normal. Mil d lingual tonsil prominence is evident. No suspicious neck mass, cervical lymphadenopathy, apical jesus ng mass, pneumonia, or pleural effusion is demonstrated. Segmental analysis: C2-3: Normal. C3-4: Broad posterior disc bulge (1.8 mm AP) does not contact the cord. Canal is 10.2 mm AP. Mild left foraminal stenosis is due to uncinate hypertrophy. C4-5: Minor anterior subluxation of C5 and broad posterior disc/osteophyte complex (3 mm AP) flatten s the cord anteriorly. Canal is 7.4 mm AP. Moderate bilateral foraminal stenoses are due to uncinat e hypertrophy, subluxation, and mild facet arthropathy. C5-6: Midline to right paracentral disc/osteophyte complex (2 mm AP by 10 mm transverse) does not co ntact the cord at rest. Canal is 10.6 mm AP. Each foramen is patent. C6-7: Broad posterior disc/osteophyte complex (2.1 mm AP) does not contact the cord. Canal is 11.3 mm AP. Mild bilateral foraminal stenoses are due to uncinate hypertrophy. C7-T1: Normal. T1-2: Normal. IMPRESSIONS: 1. C-spine mild DDD and facet arthropathy - similar to February 2013. 2. Multilevel cervical foraminal stenoses as described. 3. Moderate central canal stenosis, minor C5 subluxation, moderate bilateral foraminal stenoses and anterior cord flattening - - make C4-5 the most likely level to be symptomatic.
== END 2017-10-24 14:21 | disposition home or self-care (01) ==
LOC: RAD 14:20
PROVIDERS: ATTEND Nurse Practitioner Family
DX: G95.20 Unspecified cord compression (principal); S13.100A Subluxation of unspecified cervical vertebrae, initial encounter; M54.2 Cervicalgia

== ENCOUNTER 2018-06-18 14:43 | Outpatient (CLI) | END 2018-06-18 14:44 | disposition home or self-care (01) | LOC: LAB 14:43 | PROVIDERS: ATTEND Family Medicine | DX: Z11.1 Encounter for screening for respiratory tuberculosis (principal) | CPT/HCPCS: 36415 ==

== ENCOUNTER 2018-07-12 09:00 | Outpatient (RCR) ==
--- NOTE | 2018-07-03 11:25 | RS.OPPTEV2 ---
Date of Note: 07/03/18 Visit #: 1 Number of visits approved by Insurance: pending approval Date of Evaluation: 07/03/18 Payer Source: Medicaid Treatment Diagnosis: Neck pain, neck stiffness History of Condition/Mechanism of Injury:: Patient with a history of neck pain. She had a fusion of C4-5 in February 2018. Prior Level of Function.....Patient was independent with: ADL's, Self Care, Work /Vocation, Caregiving, Ambulation/Mobility, Community Integration/Access Functional Limitations: Sleep, ADL's, Reaching, Pushing, Pulling, Lifting, Carrying, Community Access/Integration Current Subjective/complaints:: Patient reports neck and upper traps pain and muscle spasms. States she has constant pain in the base of the skull, down the neck, and into the upper traps. States all the muscles in this area feel very tight and guarded. She reports she is able to move her neck, but she feels limited by muscle tightness. She has tried using ice pack, heating pad, compound cream, and Chiropractics with only temporary or mild relief. States she had a massage and states it gave her no lasting benefit. She has difficulty sleeping, due to having to change positions frequently. States she gets occasional radiating pain into the arms and sometimes numbness. Reports currently having no numbness or tingling in the UE's. States the pain in the back of her head, neck, and upper shoulders/traps, is worse than before her surgery. She has not seen her surgeon since March 2018 due to limitations of her insurance. Patient is emotional when describing symptoms. States she does not want pain medication, she wants to fix the problem. *Precautions: Cervical fusion C4-5 four months ago* Medical History Medical History: Hypertension Surgical History: Cervical Spine (Fusion C4-16 February 2018) Surgical History Comments:: Knee surgery (right and left), gallbladder Smoking Status: Current every day smoker Hx Home Medications: Compound topical cream, Losartan, Nortriptyline HCL Patient's Goals: Her goal is to get relief of neck and shoulder/traps pain. Pain Assessment - Pain Description Pain Location: base of skull, posterior neck, and upper traps Pain Description: Tightness, Radiating, Aching Current Pain Intensity: 7/10 Worst Pain Intensity: 9/10 Functional Outcome Measure Neck Disability Index: 70 - G Codes & Severity Modifier G Codes & Modifier: NA Source of G Code score: NA Observation - Observation Inspection: Patient presents with well healing horizontal incision to that right anterior aspect of her neck. She demonstrates a forward head posture with her head held in 10-15 degrees of left rotation. Posture: Forward Head, Rounded Shoulders, Scapula Asymmetry (Right scapula protracted, left appears elevated), Decreased Cervical Lordosis Handedness: Right - ROM Comments: Active Cervical extension 40-50% of normal range, flexion 75% of normal range. Rotation to the left 45-50 degrees, to the right 60 degrees. Patient reports tightness felt at end range in all directions. Bilateral UE AROM is WFL's. Reports tightness with end range horizontal adduction. - Strength Comments: Cervical strength generally 4/5 throughout. Right UE generally 4+/5 throughout. Left shoulder and elbow 4/5. Left wrist 4+/5. Rn Neonatal Strength Left Hand Rn Neonatal Strength: 71 lbs. Right Hand Rn Neonatal Strength: 68 lbs. Dynamometer Testing Position: 2nd Position Palpation Comments:: Patient demonstrates marked increased muscle tone throughout the cervical paraspinals, especially in the upper cervical region and suboccipital myofascia. Demonstrates moderate increased muscle tone throughout bilateral upper traps. Minimal to moderate increased tone at the middle traps. Left scapula is hypomobile compared to the right. She reports general soreness throughout the cervical paraspinals and the upper and middle traps. Central PA' s performed along the cervical spine, with reports of increased discomfort at ~ C4 and higher. Sensation - Sensation Right Lower Extremity: Intact/Normal Left Lower Extremity: Intact/Normal Interventions - Exercise/Activities/Manual Therapy Exercises/Activities: Patient given two tennis balls and instructed to use these in a sock at home to apply pressure to the suboccipital muscles in the neck. Instructed in cervical retraction, upper cervical flexion mobilization ( gentle), and scapular retraction and depression for HEP. Total minutes of Exercise: X 14 mins Manual Therapy: NA HOME EXERCISE PROGRAM: cervical retraction, upper cervical flexion mobilization (gentle), and scapular retraction and depression - Charges Timed Code Treatment Minutes: 14 mins Total Treatment Time: 45 mins Procedures billed for this date of service:: EVAL Medium EVALUATION COMPLEXITY LEVEL EVALUATION COMPLEXITY LEVEL: HISTORY: Medium (Chronic neck pain, C4-5 fusion 4 months ago, HTN), EXAM OF BODY SYSTEMS: Medium, CLINICAL PRESENTATION: Medium, CLINICAL DECISION MAKING: Medium Assessment Assessment: Patient presents to therapy with a diagnosis of Cervical pain. She reports constant neck and shoulder pain. She is four months s/p Cervical 4-5 fusion, and states her muscle pain is much worse than before surgery. She exhibits limited Cervical ROM. Marked muscle guarding/tone is exhibited in the suboccipital and cervical region and moderate tone in the upper traps. She presents with potential to benefit from manual therapy to facilitate increased length of the suboccipital muscles and decrease tone throughout the cervical and upper traps region, to get relief of pain and regain functional AROM. Patient Education: Education of diagnosis, Body/Joint mechanics, Home Exercise Program, Home Safety, Activity Modification, Education of Plan of Care Rehab Potential: Good Short Term Goals Goal #1: Muscle tone at upper cervical paraspinals decreased to moderate. Goal to be met by: 07/17/18 Goal #2: Pt to demonstrate good postural awareness. Goal to be met by: 07/17/18 Goal #3: Cervical rotation bilaterally to 60-70 degrees. Goal to be met by: 07/17/18 Goal #4: Pt to report neck pain less than constant. Goal to be met by: 07/17/18 Care Home Goals Goal #1: Pt knows HEP and to continue ex's to maintain functional level at D/c. Goal to be met by: 08/12/18 Goal #2: Neck Disability Index score improved to 50. Goal to be met by: 08/12/18 Goal #3: Pt able to sleep at night with minimal interruption from neck pain. Goal to be met by: 08/12/18 Goal #4: Pt able to perform daily activities with minimal neck/shoulder pain. Goal to be met by: 08/12/18 Plan - Treatment to be Provided Procedures: Therapeutic Exercises, Therapeutic Activity, Manual Therapy ( occipital release and DTM), Patient Education Modalities: Electrical Stimulation, Cryotherapy, Hot Packs - Treatment Plan Frequency: 2-3 X week Duration: 4 weeks Dates of Utilization Review Nurse Goals: 08/12/18 Expiration date of current Insurance Approval:: pending - Treatment Code (1) Neck pain Code(s): M54.2 - CERVICALGIA Comments: M54.2 (2) Muscle hypertonicity Code(s): M62.89 - OTHER SPECIFIED DISORDERS OF MUSCLE Comments: M62.89 (3) S/P cervical spinal fusion Code(s): Z98.1 - ARTHRODESIS STATUS Comments: Z98.1
--- NOTE | 2018-07-06 12:49 | RS.OPPTDN ---
Subjective Date of Note: 07/06/18 Visit #: 2 Number of visits approved by Insurance: pending Date of Evaluation: 07/03/18 Payer Source: Medicaid Treatment Diagnosis: Neck pain, neck stiffness Current Subjective/complaints:: Patient reports her pain is constant,has tried several options for pain control without success.She states , "this has affected my entire life ". *Precautions: Cervical fusion C4-5 four months ago* Pain Assessment - Pain Description Pain Location: cervical and upper traps Pain Description: Radiating, Dull, Aching, Chronic Pain Description: constant Current Pain Intensity: 7/10 - Treatment Modality: Electrical Stim Unattended Parameters/Method Applied: 20 mins. high volt,2 large electrodes ,one on each UT @ 90 pv. Patient Position: Sitting - Heat/Cryotherapy Treatment: Hot Pack (concurrent with e-stim) Interventions - Exercise/Activities/Manual Therapy Exercises/Activities: 25 mins, cervical ROM all directions ,occipital release, chin tucks ,upper trap stretches. Total minutes of Exercise: 25 Manual Therapy: NA Total minutes of Manual Therapy: 0 HOME EXERCISE PROGRAM: cervical retraction, upper cervical flexion mobilization (gentle), and scapular retraction and depression - Charges Timed Code Treatment Minutes: 45 Total Treatment Time: 45 Procedures billed for this date of service:: hp,e-stim,ex 2 Assessment: Patient reports no pain relief after PT session today,She is guarded wtih all cervical motion,but does not report increased pain with gentle stretch in available ROM.She is attentive to recommendations for her care. Patient Education: Education of diagnosis, Body/Joint mechanics, Home Exercise Program, Home Safety, Activity Modification, Education of Plan of Care Patient demonstrates compliance with HEP?: Yes Short Term Goals Goal #1: Muscle tone at upper cervical paraspinals decreased to moderate. Goal to be met by: 07/17/18 Goal #2: Pt to demonstrate good postural awareness. Goal to be met by: 07/17/18 Progress towards Goal:: Progressing Goal #3: Cervical rotation bilaterally to 60-70 degrees. Goal to be met by: 07/17/18 Goal #4: Pt to report neck pain less than constant. 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 Goal to be met by: 08/12/18 Progress towards goal: Progressing Goal #2: Neck Disability Index score improved to 50. Goal to be met by: 08/12/18 Goal #3: Pt able to sleep at night with minimal interruption from neck pain. Goal to be met by: 08/12/18 Progress towards goal: No Change Goal #4: Pt able to perform daily activities with minimal neck/shoulder pain. Goal to be met by: 08/12/18 Plan Dates of Jail Goals: 08/12/18 Expiration date of current Insurance Approval:: pending PLAN: Cont. PT to reduce /eliinate cervical pain.
--- NOTE | 2018-07-09 11:19 | RS.OPPTDN ---
Subjective Date of Note: 07/09/18 Visit #: 3 Number of visits approved by Insurance: pending Date of Evaluation: 07/03/18 Payer Source: Medicaid Treatment Diagnosis: Neck pain, neck stiffness Current Subjective/complaints:: Patient reports she had muscle cramps the remainder of the day after last session.She requests to do the e-stim today , but at less intensity. *Precautions: Cervical fusion C4-5 four months ago* Pain Assessment - Pain Description Pain Location: cervical / UT's Pain Description: Dull, Aching, Chronic Current Pain Intensity: 6/10 - Treatment Modality: Electrical Stim Unattended Parameters/Method Applied: 20 mins. high volt,channel 1 between scapulae @ 50 pv ,channel 2 to UT's @ 30 pv. Patient Position: Supine - Heat/Cryotherapy Treatment: Hot Pack (concurrent with e-stim) Interventions - Exercise/Activities/Manual Therapy Exercises/Activities: 30 mins, cervical ROM all directions ,occipital release, chin tucks ,upper trap stretches.Standing corner. stretches,postural /scapular exercises of pro/retraction. Total minutes of Exercise: 30 Manual Therapy: NA Total minutes of Manual Therapy: 0 HOME EXERCISE PROGRAM: cervical retraction, upper cervical flexion mobilization (gentle), and scapular retraction and depression - Objective Findings Observations,measurements,etc.: Cervical rotation 40 degrees to L and R actively , 55-60 degrees passively in supine. - Charges Timed Code Treatment Minutes: 30 Total Treatment Time: 50 Procedures billed for this date of service:: hp,e-stim,ex 2 Assessment: Patient has increased cervical rotation passively today in supine.She continues to report her pain is constant ,does not sleep well.She has slight forward head posture at rest in sitting ,but corrects this well with cues. Patient Education: Education of diagnosis, Body/Joint mechanics, Home Exercise Program, Home Safety, Activity Modification, Education of Plan of Care Patient demonstrates compliance with HEP?: Yes Short Term Goals Goal #1: Muscle tone at upper cervical paraspinals decreased to moderate. Goal to be met by: 07/17/18 (na today) Goal #2: Pt to demonstrate good postural awareness. Goal to be met by: 07/17/18 Progress towards Goal:: Progressing Goal #3: Cervical rotation bilaterally to 60-70 degrees. Goal to be met by: 07/17/18 Goal #4: Pt to report neck pain less than constant. Goal to be met by: 07/17/18 Progress towards Goal:: No Change Half-Way Goals Goal #1: Pt knows HEP and to continue ex's to maintain functional level at D/c. Goal to be met by: 08/12/18 Progress towards goal: Progressing Goal #2: Neck Disability Index score improved to 50. Goal to be met by: 08/12/18 Goal #3: Pt able to sleep at night with minimal interruption from neck pain. Goal to be met by: 08/12/18 Progress towards goal: No Change Comments: reports constant pain Goal #4: Pt able to perform daily activities with minimal neck/shoulder pain. Goal to be met by: 08/12/18 Progress towards goal: No Change Comments: reports constant pain Plan Dates of Half-Way Goals: 08/12/18 Expiration date of current Insurance Approval:: pending PLAN: Cont. skilled PT to reduce /eliminate cervical pain ,increase postural awareness.
--- NOTE | 2018-07-12 10:11 | RS.OPPTDN ---
Subjective Date of Note: 07/12/18 Visit #: 4 Number of visits approved by Insurance: pending Date of Evaluation: 07/03/18 Payer Source: Medicaid Treatment Diagnosis: Neck pain, neck stiffness Current Subjective/complaints:: Patient reports she seems to hurt more after therapy.Her pain continues to be constant. *Precautions: Cervical fusion C4-5 four months ago* Pain Assessment - Pain Description Pain Location: cervical / shoulders Pain Description: Radiating, Dull, Aching, Chronic Current Pain Intensity: not rated - Treatment Modality: Electrical Stim Unattended Parameters/Method Applied: 20 mins. high volt,channel 1 and 2 @ 25 -30 pv. Patient Position: Supine - Heat/Cryotherapy Treatment: Hot Pack (concurrent withe-stim) Interventions - Exercise/Activities/Manual Therapy Exercises/Activities: 10 mins, chin tucks ,upper trap stretches.Standing corner. stretches,postural /scapular exercises of pro/retraction. Total minutes of Exercise: 10 Manual Therapy: NA Total minutes of Manual Therapy: 0 HOME EXERCISE PROGRAM: cervical retraction, upper cervical flexion mobilization (gentle), and scapular retraction and depression - Charges Timed Code Treatment Minutes: 10 Total Treatment Time: 30 Procedures billed for this date of service:: hp,e-stim ,ex Assessment: No significant change today.Patient emotional today due to her chronic pain .We discussed the POC ,plans to make appt. next week for therapy , but understands if no change ,we plan to D/C therapy,recommend for her to return to for options regarding her pain management. Patient Education: Education of diagnosis, Body/Joint mechanics, Home Exercise Program, Home Safety, Activity Modification, Education of Plan of Care Patient demonstrates compliance with HEP?: Yes Short Term Goals Goal #1: Muscle tone at upper cervical paraspinals decreased to moderate. Goal to be met by: 07/17/18 (na today) Progress towards Goal:: No Change Goal #2: Pt to demonstrate good postural awareness. Goal to be met by: 07/17/18 Progress towards Goal:: Met Goal #3: Cervical rotation bilaterally to 60-70 degrees. Goal to be met by: 07/17/18 Progress towards Goal:: No Change Goal #4: Pt to report neck pain less than constant. Goal to be met by: 07/17/18 Progress towards Goal:: No Change Renewal Specialist Goals Goal #1: Pt knows HEP and to continue ex's to maintain functional level at D/c. Goal to be met by: 08/12/18 Progress towards goal: Progressing Goal #2: Neck Disability Index score improved to 50. Goal to be met by: 08/12/18 Goal #3: Pt able to sleep at night with minimal interruption from neck pain. Goal to be met by: 08/12/18 Progress towards goal: No Change Goal #4: Pt able to perform daily activities with minimal neck/shoulder pain. Goal to be met by: 08/12/18 Progress towards goal: No Change Plan Dates of Renewal Specialist Goals: 08/12/18 Expiration date of current Insurance Approval:: pending PLAN: Initiate D/C plan next week if no progress made.
== END 2018-07-12 23:59 ==
PROVIDERS: ATTEND Family Medicine
DX: M54.2 Cervicalgia (principal)

== ENCOUNTER 2018-07-16 10:00 | Outpatient (RCR) ==
--- NOTE | 2018-07-16 10:27 | RS.CXNS ---
Date of scheduled appointment: 07/16/18 Type: No Show Reason for Cancel/NS: Unknown.Discussed at last visit to please call us if no significant change.
--- NOTE | 2018-07-19 10:35 | RS.QUICKDC ---
Discharge from PT Date of Discharge: 12/07/12 Number of Visits: 4 Reason for Discharge: No contact from patient after 07/12 18 visit.She reported at the last visit the therapy did not seem to be helping.
== END 2018-08-12 23:59 ==
PROVIDERS: ATTEND Family Medicine
DX: M54.2 Cervicalgia (principal)

== ENCOUNTER 2018-08-21 10:31 | Outpatient (POV) | END 2018-08-21 17:00 | LOC: OUTPT 10:31 | PROVIDERS: ATTEND Otolaryngology | DX: H90.5 Unspecified sensorineural hearing loss (principal) | CPT/HCPCS: 92557; 92567 ==